=== PATIENT | male | born 2005 | race Two or more races ===

== ENCOUNTER 2025-01-14 16:35 | Emergency (ER) | payer OTHER ==
[~2025-01-14] VITALS: Ht 165.1 cm; Wt 63.6 kg
[2025-01-14 18:51] LABS: PLATELET COUNT (AUTO) 277 K/uL (150-450); RED BLOOD CELL COUNT(AUTO) 4.44 MIL/uL (4.50-5.90); RED CELL DISTRIBUTION WIDTH 13.8 % (11.5-14.5); WHITE BLOOD COUNT (AUTO) 7.2 K/uL (4.5-11.0)
[2025-01-14 19:01] LABS: CALCIUM, TOTAL 8.7 mg/dL (8.8-10.5); CREATININE 0.59 mg/dL (0.60-1.30); GLOMERULAR FILTR. RATE CALC > 60 mL/min (>60); GLUCOSE,RANDOM 91 mg/dL (70-110); SODIUM SERUM 139 mmol/L (136-145); UREA NITROGEN, BLOOD 8 mg/dL (7-18)
[2025-01-14 19:06] LABS: ASPARTATE AMINOTRANSFERASE 38 U/L (15-37); TOTAL PROTEIN, SERUM 7.3 g/dL (6.4-8.2)
[2025-01-14] MEDS: PROPARACAINE HCL 0.5% 15 ML OPHTHALMIC SOLUTION OU ONE (19:59)
[2025-01-14] MEDS: FLUORESCEIN SODIUM 1 MG STRIP OU ONE (20:00)
[2025-01-14] MEDS: BACITRACIN 0.9 GM PACKET OINTMENT TP ONE (20:43)
[2025-01-14] MEDS: PERTUSS(ACELL),DIPH,TET/PF 0.5 ML SYRINGE [ADULT] IM. ONE (20:43)
[2025-01-14] MEDS: SODIUM CHLORIDE 0.9% 500 ML IRRIG SOLUTION BOTTLE IRRIG ONE (20:54)
[2025-01-14 21:00] VITALS: BP 145/79; PULSE 77; RESP 18; TEMP 97.3; O2SAT 100
== END 2025-01-14 21:45 ==
LOC: EMS 16:35
DX: S02.2XXA Fracture of nasal bones, initial encounter for closed fracture (principal); S01.81XA Laceration without foreign body of other part of head, initial encounter; S01.111A Laceration without foreign body of right eyelid and periocular area, initial encounter; S05.11XA Contusion of eyeball and orbital tissues, right eye, initial encounter; S06.9X9A Unspecified intracranial injury with loss of consciousness of unspecified duration, initial encounter; W19.XXXA Unspecified fall, initial encounter; Y93.89 Activity, other specified; Y92.89 Other specified places as the place of occurrence of the external cause; Y99.8 Other external cause status
CPT/HCPCS: 70450; 70486; 71045; 72125; 80053; 85025; 85610; 90715; 99285; 36415-L1; 36415-TC